=== PATIENT | male | born 1955 | race Caucasian/White ===

== ENCOUNTER 2018-09-27 02:39 | Outpatient (CLI) | payer OTHER | END 2018-09-27 02:40 | disposition critical access hospital (66) | LOC: EMS 02:39 | PROVIDERS: ATTEND Surgery | DX: R10.9 Unspecified abdominal pain (principal); R11.10 Vomiting, unspecified | CPT/HCPCS: A0425; A0427 ==

== ENCOUNTER 2018-09-27 03:10 | Emergency (ER) | payer OTHER ==
[2018-09-27] MEDS ORDERED: NITROGLYCERIN SL 0.4 MG TABLET SL ONE (03:24)
[2018-09-27] MEDS ORDERED: ASPIRIN CHEW 81 MG TABLET ONE (03:24)
[2018-09-27] MEDS ORDERED: CLOPIDOGREL 300 MG TABLET PO ONE (03:25)
[2018-09-27] MEDS ORDERED: HEPARIN 5,000 UNIT/ML VIAL ONE (03:25)
[2018-09-27] MEDS ORDERED: SODIUM CHLORIDE 0.9% 500 ML IV ONE (03:26)
[2018-09-27] MEDS ORDERED: METOPROLOL TARTRATE 50 MG TABLET ONE (03:26)
[2018-09-27] MEDS ORDERED: HEPARIN 25000UNITS/500ML (D5W) 25,000 UNIT/500 ML BAG IV ONE (03:26)
--- NOTE | 2018-09-27 03:26 | ED Physician Documentation ---
PD HPI CHEST PAIN - Stated complaint Stated Complaint: ABD PAIN - Chief complaint Chief Complaint: Abd Pain - History obtained from History obtained from: Patient, EMS - History of Present Illness Timing - onset: How many hours ago (2) Timing - onset during: Rest Timing - duration: Hours (2) Timing - details: Abrupt onset, Still present, Constant Quality: Tightness, Aching Location: Substernal, Epigastric Radiation: Back Worsened by: Exertion. No: Inspiration, Movement Associated symptoms: Shortness of air, Nausea, Feeling faint / dizzy. No: Vomiting, General Weakness, Palpitations Similar symptoms before: Has not had sx before, Other (Exertionally related chest pain in a similar location which will decrease with rest. He does have a remote history of coronary disease with stents placed in [place]. He had recently moved to this area. He had been doing well post stents without any angina. He denies prior heart attack.) Recently seen: Not recently seen Review of Systems Constitutional: denies: Fever Nose: denies: Rhinorrhea / runny nose, Congestion Throat: denies: Sore throat Cardiac: reports: Chest pain / pressure (exertional the past few weeks). denies: Palpitations, Pedal edema, Calf pain Respiratory: reports: Dyspnea. denies: Cough, Wheezing GI: reports: Abdominal Pain, Nausea. denies: Vomiting, Diarrhea Skin: denies: Rash, Lesions Neurologic: denies: Focal weakness, Numbness, Near syncope, Altered mental status, Headache PD PAST MEDICAL HISTORY - Past Medical History Past Medical History: Yes Cardiovascular: Coronary artery disease (with stents in [place] years ago) Neuro: None GI: Other (liver disease) Psych: None Other Past Medical History: CIRRHOSIS OF LIVER... ABD HERNIAS.... - Past Surgical History Past Surgical History: Yes Cardiovascular: Other - Allergies Allergies/Adverse Reactions: Allergies Allergy/AdvReac Type Severity Reaction Status Date / Time No Known Drug Allergies Allergy Verified 09/27/18 03:22 - Social History Does the pt smoke?: No Smoking Status: Never smoker Does the pt drink ETOH?: Yes Does the pt have substance abuse?: No - Immunizations Immunizations are current?: Yes - POLST Patient has POLST: No PD ED PE NORMAL - Vitals Vital signs reviewed: Yes - General General: Alert and oriented X 3, Well developed/nourished, Other (smell of alcohol on breath; he does appear in pain, uncomfortable. ) - HEENT HEENT: PERRL (nonicteric), Pharynx benign - Neck Neck: Supple, no meningeal sign, No adenopathy - Cardiac Cardiac: RRR, No murmur - Respiratory Respiratory: Clear bilaterally - Abdomen Abdomen: Soft, Non tender, Non distended, Other (enlarge liver to palpation.) - Male Male : Deferred - Rectal Rectal: Deferred - Back Back: No CVA TTP - Derm Derm: Normal color, Warm and dry - Extremities Extremities: No tenderness to palpate, Normal ROM s pain, No edema, No calf tenderness / cord - Neuro Neuro: Alert and oriented X 3, No motor deficit, Normal speech Eye Opening: Spontaneous Motor: Obeys Commands Verbal: Oriented GCS Score: 15 Results - Vitals Vitals: Vital Signs - 24 hr 09/27/18 09/27/18 03:13 03:31 Temperature 36.4 C L Heart Rate 100 98 Respiratory 20 18 Rate Blood Pressure 176/106 H 143/86 H O2 Saturation 95 Oxygen O2 Source Room air - EKG (time done) arrival Rhythm: NSR Intervals: LBBB Ischemia: ST elevation c/w ischemia (inferiorly marked elevations (evolved and more prominent compared to EMS monitor strips).), Non specific changes Compare to prior EKG: Old EKG unavailable PD MEDICAL DECISION MAKING - ED course Complexity details: considered differential, d/w patient, d/w solutions architect consultant ([facility] attending, who accepts STEMI transfer.) - Critical Care Time(min): 25 Time Includes: Direct patient care, Reassess patient, Coordinate care, Medical consult Data interpretation: Pulse ox Procedures excluded from critical care time: EKG Departure - Departure Disposition: 02 Transfer Acute Care Hosp Clinical Impression: ST elevation myocardial infarction (STEMI) of inferior wall, Acute epigastric pain Condition: Stable Record reviewed to determine appropriate education?: Yes
[2018-09-27] MEDS ORDERED: CLOPIDOGREL 300 MG TABLET PO STA (03:28)
[2018-09-27] MEDS ORDERED: ASPIRIN CHEW 81 MG TABLET PO STA (03:28)
[2018-09-27] MEDS ORDERED: HEPARIN 5,000 UNIT/ML VIAL IVP STA (03:31)
[2018-09-27] MEDS ORDERED: HEPARIN 25000UNITS/500ML (D5W) 25,000 UNIT/500 ML BAG IV STA (03:31)
[2018-09-27] MEDS ORDERED: NITROGLYCERIN 50 MG/250 ML 50 MG/250 ML BOTTLE IV STA (03:32)
[2018-09-27 03:54] VITALS: BP 146/86
== END 2018-09-27 03:55 | disposition short-term general hospital (02) ==
LOC: ED 03:10
DX: I21.19 ST elevation (STEMI) myocardial infarction involving other coronary artery of inferior wall (principal); I25.10 Atherosclerotic heart disease of native coronary artery without angina pectoris; K74.60 Unspecified cirrhosis of liver; I44.7 Left bundle-branch block, unspecified; Z95.5 Presence of coronary angioplasty implant and graft
CPT/HCPCS: 93005; 96365; 96368; 96375; 99291; A9270; 99284

== ENCOUNTER 2018-09-27 03:49 | Outpatient (CLI) | payer OTHER | END 2018-09-27 03:50 | disposition short-term general hospital (02) | LOC: EMS 03:49 | PROVIDERS: ATTEND Surgery | DX: I21.3 ST elevation (STEMI) myocardial infarction of unspecified site (principal) | CPT/HCPCS: A0425; A0427 ==